=== PATIENT | female | born 1980 | race Caucasian/White ===

== ENCOUNTER 2019-05-26 05:37 | Outpatient (CLI) | payer OTHER ==
[~2019-05-26] VITALS: Ht 157 cm; Wt 86.6 kg
[2019-05-26] MEDS ORDERED: RANI-514 PO (10:38)
[2019-05-30] MEDS ORDERED: OXYC1TAB87 PO (09:20)
[2019-05-30] MEDS ORDERED: DOCU-143 PO (09:20)
[2019-05-30] MEDS ORDERED: IBUP-1780 PO (09:20)
== END 2019-05-26 10:51 | disposition home or self-care (01) ==
LOC: PREOP 05:37
PROVIDERS: ATTEND Obstetrics & Gynecology
DX: Z01.818 Encounter for other preprocedural examination (principal)

== ENCOUNTER 2019-05-30 10:44 | Day surgery (SDC) | payer OTHER ==
[~2019-05-30] VITALS: Ht 157 cm; Wt 86.6 kg
[2019-05-30] VITALS (11 sets, daily range): BP systolic 107–151; BP diastolic 66–90
--- NOTE | 2019-05-30 09:14 | Progress Note-Pre Operative ---
Pre-Operative Progress Note H&P Reviewed The H&P was reviewed, patient examined and no changes noted. Date Seen by Provider: May 30, 2019 Time Seen by Provider: 12:30 Date H&P Reviewed: May 30, 2019 Time H&P Reviewed: 12:30 Pre-Operative Diagnosis: JOSE III WADE MCCABE MD May 30, 2019 09:14
--- NOTE | 2019-05-30 09:15 | Progress Note-Post Operative ---
Post-Operative Progess Note Surgeon (s)/Avionics Test Technician (s) Surgeon WADE MCCABE MD Avionics Test Technician: Balbina Mendez Pre-Operative Diagnosis JOSE III Post-Operative Diagnosis same Procedure & Operative Findings Date of Procedure 05/30/19 Procedure Performed/Findings TLH with BS Anesthesia Type GETA Estimated Blood Loss Estimated blood loss (mL): minimal Specimens/Packing Specimens Removed Uterus and tubes Packing: WADE Valle MD May 30, 2019 09:15
--- NOTE | 2019-05-30 09:21 | Discharge Instructions ---
Discharge Instructions Discharge Medications New, Converted or Re-Newed RX: RX on Chart Patient Instructions Return to The Hospital For: as directed Activity & Diet Discharge Diet: No Restrictions Activity as Tolerated: No Orders-Post D/C & Referrals Follow Up Appt: RTC on Saturday June 01, 2019 at 9:30 AM for staple removal Call to make follow up appt. for patient in 4 weeks. Activity: Rest for 24 hours, than as tolerated. Wound Care: May remove Band-Aid tomorrow. Replace as desired. Keep incisions clean and dry. Wash daily with soap and water. Please call in RX to patient pharmacy. Diet: As tolerated-Clear Liquids only if nauseated. shower or tub bathe as desired. No driving for 24 hours, no alcoholic beverages for 24 hours, and nothing per vagina (no tampons, douching, or intercourse) for 8 weeks. Patient to return to the clinic as soon as possible for: Temperature greater than 101F, Severe Pain, Foul discharge from incision or vagina, Excessive Bleeding (more than a period). WADE MCCABE MD May 30, 2019 09:21
[~2019-05-30 10:44] MED LIST: DEXAMETHASONE 10 MG/ML (DECADRON) 1 ML VIAL ONE; DOCU-143 PO; GLYCOPYRROLATE 0.2 MG/ML (ROBINUL) 2 ML VIAL ONE; IBUP-1780 PO; LIDOCAINE PF 2% 5 ML (XYLOCAINE) VIAL ONE; MIDAZOLAM 2 MG/2 ML (VERSED) VIAL ONE; NEOSTIGMINE 3 MG/3 ML VIAL ONE; ONDANSETRON 4 MG/2 ML (SDV) Z0FRAN ONE; OXYC1TAB87 PO; RANI-514 PO; ROCURONIUM 10 MG/ML 5 ML SYRINGE IV ONE; SEVOFLURANE (ULTANE) 15 ML INHAL SOLN ONE; fentaNYL INJECTION 100 MCG/2 ML AMP ONE; proPOfol 200 MG/20 ML (DIPRIVAN) VIAL IV ONE
[2019-05-30] MEDS ORDERED: ceFAZolin INJECTION 1,000 MG in WATER (STERILE) FOR INJECTION 10 ML IV ONE (11:00)
[2019-05-30] MEDS: LACTATED RINGERS 1,000 ML IV PRN ×2 (11:15→13:01)
[2019-05-30 11:22] LABS: BASOPHILS % (AUTO) 0 % (0-10); EOSINOPHILS # (AUTO) 0.1 10^3/uL (0.0-0.3); EOSINOPHILS % (AUTO) 1 % (0-10); HEMATOCRIT 45 % (35-52); HEMOGLOBIN 15.4 G/DL (11.5-16.0); LYMPHOCYTES # (AUTO) 2.5 X 10^3 (1.0-4.0); LYMPHOCYTES % (AUTO) 28 % (12-44); MEAN CORPUSCULAR HEMOGLOBIN 29 PG (25-34); MEAN CORPUSCULAR HGB CONC 34 G/DL (32-36); MEAN CORPUSCULAR VOLUME 84 FL (80-99); MEAN PLATELET VOLUME 10.3 FL (7.4-10.4); MONOCYTES # (AUTO) 0.5 X 10^3 (0.0-1.0); MONOCYTES % (AUTO) 6 % (0-12); NEUTROPHILS # (AUTO) 5.7 X 10^3 (1.8-7.8); NEUTROPHILS % (AUTO) 64 % (42-75); PLATELET COUNT 268 10^3/uL (130-400); RED CELL DISTRIBUTION WIDTH 13.1 % (10.0-14.5); WHITE BLOOD COUNT 8.9 10^3/uL (4.3-11.0)
[2019-05-30] MEDS ORDERED: BUP/EPI 0.25% 1:200,000 (MARCAINE) 10 ML VIAL IJ ONE (11:38)
[2019-05-30] MEDS ORDERED: SEVOFLURANE (ULTANE) 15 ML INHAL SOLN ONE (13:27)
[2019-05-30] MEDS ORDERED: NEOSTIGMINE 3 MG/3 ML VIAL ONE (13:35)
[2019-05-30] MEDS ORDERED: GLYCOPYRROLATE 0.2 MG/ML (ROBINUL) 2 ML VIAL ONE (13:35)
[2019-05-30] MEDS ORDERED: ONDANSETRON 4 MG/2 ML (SDV) Z0FRAN ONE ×2 (13:39→15:01)
[2019-05-30] MEDS ORDERED: morphine INJ 10 MG/ML 1ML (SYR OR VIAL) ONE (13:39)
[2019-05-30] MEDS ORDERED: KETOROLAC 30 MG/ML VIAL ONE (13:39)
[2019-05-30] MEDS ORDERED: ONDANSETRON 4 MG/2 ML (SDV) Z0FRAN IVP PRN ×2 (13:45→14:00)
[2019-05-30] MEDS ORDERED: MEPERIDINE (DEMEROL) INJ 100 MG/ML IM PRN (13:45)
[2019-05-30] MEDS ORDERED: PROMETHAZINE INJ 25 MG/ML (PHENERGAN) AMP IM PRN (13:45)
[2019-05-30] MEDS ORDERED: KETOROLAC 30 MG/ML VIAL IVP SCH (13:45)
[2019-05-30] MEDS ORDERED: morphine INJ 10 MG/ML 1ML (SYR OR VIAL) IVP ONE (14:00)
--- NOTE | 2019-05-30 14:45 | NUR ---
pt transferred to room 305 via bed with PACU staff @ side. report received from BELLE Jj.
--- NOTE | 2019-05-30 14:46 | Anesthesia-General Post-Op ---
General Patient Condition Mental Status/LOC: Same as Preop Cardiovascular: Satisfactory Nausea/Vomiting: Absent Respiratory: Satisfactory Pain: Controlled Complications: Absent Post Op Complications Complications None Follow Up Care/Instructions Patient Instructions None needed. Anesthesia/Patient Condition Patient Condition Patient is doing well, no complaints, stable vital signs, no apparent adverse anesthesia problems. No complications reported per nursing. TAVO WOLF CRNA May 30, 2019 14:46
--- NOTE | 2019-05-30 14:50 | NUR ---
initial shift assessment completed, see interventions for further. c/o nausea and pain, requesting medications. see eMar for further. family @ side.
[2019-05-30] MEDS ORDERED: MEPERIDINE (DEMEROL) INJ 100 MG/ML ONE (15:01)
[2019-05-30] MEDS ORDERED: PROMETHAZINE INJ 25 MG/ML (PHENERGAN) AMP ONE (15:01)
--- NOTE | 2019-05-30 15:24 | NUR ---
report given to BELLE Hernandes.
[2019-05-30] MEDS: D5 LR IV SOLUTION 1,000 ML IV SCH (16:49)
[2019-05-30] MEDS: KETOROLAC 30 MG/ML VIAL IVP SCH (21:09)
[2019-05-30] MEDS: oxyCODONE/APAP 5/325MG (PERCOCET 5) TABLET PO PRN (23:24)
[2019-05-30] MEDS: CHLORASEPTIC LOZENGE MM PRN (23:27)
--- NOTE | 2019-05-30 23:38 | OPERATIVE REPORT ---
DATE OF SERVICE: 05/30/2019 PREOPERATIVE DIAGNOSES: Cervical intraepithelial neoplasia 3. POSTOPERATIVE DIAGNOSES: Cervical intraepithelial neoplasia 3 with likely endometriosis. OPERATIVE PROCEDURE: Total laparoscopic hysterectomy with bilateral salpingectomies. OPERATIVE DESCRIPTION: With the patient in the supine position under satisfactory general anesthesia, she was repositioned in the dorsal lithotomy position in the [facility] and prepped and draped in the usual fashion for abdominal and vaginal surgery using the da Greer equipment. Weighted speculum placed in posterior fornix of vagina, cervix exposed and grasped anteriorly with single tooth tenaculum. Uterus was sounded to 9.5 cm with uterine sound. The cervix was then serially dilated with Jass dilators to accommodate a Tarsha II manipulator, which was placed in the usual manner using a 6 mm x 8 cm uterine probe and a 30 mm colpotomy ring. Sutures of #1 Vicryl placed at 3 and 9 o'clock position of the cervix to affix the uterus to the manipulator. The patient was brought in low dorsal lithotomy position after placing a Whitaker catheter to dependent drainage. A 12 mm incision was made 4 cm superior to the umbilicus. Veress needle was placed through that incision into the abdominal cavity. Correct placement confirmed with water drop test. The abdomen was insufflated with 2.4 liters of carbon dioxide. The Veress needle was removed and a 12 mm laparoscopic port was placed. The camera was introduced. The abdominal wall was transilluminated and ports of 8 mm were placed under direct vision 9 cm lateral to the umbilicus approximately 1.5 cm superior to the umbilicus. All three port sites were infiltrated with 0.25% Marcaine with epinephrine prior to incision and port placement. The patient now placed in Trendelenburg allowing the bowel to spill out of the pelvis. The uterus was examined as were the fallopian tubes. Fallopian tubes showed evidence of remote tubal sterilization. There was some endometriosis and adhesions on the posterior lower uterine segment. The uterus was somewhat mottled in appearance. The ovaries appeared normal in spite of having noted, what appeared to be, a hemorrhagic corpus luteal cyst on the right ovary prior to the procedure that appears to have resolved. The appendix was identified. It was a normal vermiform appendix. The console had been docked to the patient and operative instrument was placed in right and left lateral ports and at the console, the survey that I just dictated was completed and then the procedure was initiated by raising the right fallopian tube and using the vessel sealer to clamp, cauterize, and divide the mesosalpinx that was continued across the mesosalpinx to the uteroovarian pedicle, which was clamped, cauterized and divided, as well this continued across the round ligament down the broad ligament and onto the cardinal ligament. Same procedure performed on the left, allowing for removal of both fallopian tubes eventually with the uterus for conservation of both ovaries. Both ureters were easily visible and peristalsing normally during the entire procedure. The anterior lower uterine segment peritoneum was now divided by replacing the vessel sealer with a monopolar shear. The colpotomy incision was then started at the 12 o'clock position onto the colpotomy ring. That incision was continued circumferentially until the entire colpotomy ring was exposed and then the uterus with tubes and ovaries still attached was extracted through the vagina. The vaginal cuff was closed with a single suture of V-Loc barbed suture starting first from the right angle and continuing across the cuff to the left angle taking care to include the uterine vessel pedicles on each side. Hemostasis was complete. Good reapproximation was achieved. There was no abnormal pathology and there was no bleeding. At this point, the procedure was terminated. The operative instruments were removed under direct vision as were the ports. The abdomen was evacuated of the insufflating gas in the process of removing the instruments and ports. The skin incisions were closed with jose. The fascia at the supraumbilical incision was closed with [id number] suture of 2-0 Vicryl. Speculum was replaced in the vagina. The vaginal cuff was examined. It was completely reapproximated and completely hemostatic. Sponge and needle counts were correct. Estimated blood loss was minimal. The patient tolerated the procedure well and was uneventfully awakened from her general anesthesia and transferred to recovery room in stable condition. Job ID: [id number] DocumentID: [id number] Dictated Date: 05/30/2019 13:35:16 Application Design Engineer Date: 05/30/2019 23:13:44 Dictated By: WADE MCCABE MD
[2019-05-31 00:49] VITALS: BP 105/57
[2019-05-31] MEDS: D5 LR IV SOLUTION 1,000 ML IV SCH (00:49)
[2019-05-31] MEDS: KETOROLAC 30 MG/ML VIAL IVP SCH (04:41)
[2019-05-31 04:42] VITALS: BP 100/59
[2019-05-31] MEDS: CHLORASEPTIC LOZENGE MM PRN (04:46)
--- NOTE | 2019-05-31 07:50 | NUR ---
DR. MCCABE HERE TO SEE PT. PLAN FOR DISCHARGE.
[2019-05-31 08:00] VITALS: BP 120/74
--- NOTE | 2019-05-31 08:00 | NUR ---
A.M. ASSESSMENT COMPLETED. VSS. ATTEMPTING TO VOID PRIOR TO THIS RN'S ARRIVAL WITHOUT SUCCESS. OUT TO AMBULATE IN THE RUIZ WITH SPOUSE.
--- NOTE | 2019-05-31 08:02 | Progress Note ---
Standard Progress Note Progress Notes/Assess & Plan Date Seen by a Provider: May 31, 2019 Time Seen by a Provider: 08:01 Progress/Assessment & Plan This patient is without complaint she is ambulating, tolerating oral intake well has good pain control. IT is just been removed she has not voided yet. Vital Signs 05/30/19 05/31/19 16:05 04:42 Temp 36.9 Pulse 57 Resp 18 B/P (MAP) 100/59 (73) Pulse Ox 94 O2 Delivery Room Air O2 Flow Rate 6.00 Vital signs are stable. Patient is afebrile. The abdomen is benign. Extremities show no clubbing or cyanosis. There is no Homans sign. Assessment and plan postoperative day number 1 doing well plan is for discharge home with follow-up in clinic Final Diagnosis JOSE-3 WADE MCCABE MD May 31, 2019 08:02
[2019-05-31] MEDS ORDERED: DOCUSATE SODIUM 100 MG (COLACE) CAP PO SCH (09:00)
--- NOTE | 2019-05-31 09:30 | NUR ---
VOIDED A FEW DROPS. TAKING FLUIDS.
[2019-05-31] MEDS: oxyCODONE/APAP 5/325MG (PERCOCET 5) TABLET PO PRN (09:38)
--- NOTE | 2019-05-31 10:20 | NUR ---
VOIDED 200 CC. ANXIOUS TO GO HOME.
[2019-05-31 10:45] VITALS: BP 120/74
--- NOTE | 2019-05-31 10:45 | NUR ---
DISCHARGE INSTRUCTIONS REVIEWED WITH COPY TO PT. STATES UNDERSTANDING OF ALL INSTRUCTIONS AND NEED TO F/U SCHEDULED AND NEEDED. DISMISSED VIA W/C TO FAMILY CAR IN STABLE CONDITION ACC BY SPOUSE,SISTER, AND YEN ODONNELL.
[2019-05-31] MEDS ORDERED: IBUPROFEN 800 MG (MOTRIN) TAB PO SCH (14:00)
== END 2019-05-31 10:45 | disposition home or self-care (01) ==
LOC: SDC 10:44 → WS 14:45 → SDC 05-31 10:45
PROVIDERS: ATTEND Obstetrics & Gynecology
DX: D06.9 Carcinoma in situ of cervix, unspecified (principal); G43.909 Migraine, unspecified, not intractable, without status migrainosus; K21.9 Gastro-esophageal reflux disease without esophagitis; E66.9 Obesity, unspecified; F17.210 Nicotine dependence, cigarettes, uncomplicated; Z68.35 Body mass index [BMI] 35.0-35.9, adult; Z90.89 Acquired absence of other organs; Z98.51 Tubal ligation status; Z80.3 Family history of malignant neoplasm of breast; Z83.3 Family history of diabetes mellitus
CPT/HCPCS: 36415; 84703; 85025; 86850; 86900; 86901; 87081; 94664